=== PATIENT | female | born 1975 ===

== ENCOUNTER 2016-11-10 16:31 | Emergency (ER) | payer SELFPAY ==
[~2016-11-10] VITALS: Ht 152.4 cm; Wt 77.0 kg
[2016-11-10 16:32] VITALS: Ht 152.4 cm; Wt 77.0 kg
== END 2016-11-11 02:26 | disposition left against medical advice (07) ==
LOC: E/R 16:31
DX: Z53.21 Procedure and treatment not carried out due to patient leaving prior to being seen by health care provider (principal)